=== PATIENT | male | born 1970 | race Caucasian/White ===

== ENCOUNTER 2021-08-08 08:29 | Emergency (ER) | payer OTHER ==
[2021-08-08 08:53] VITALS: BP 153/80; PULSE 93; TEMP 97.7; BMI 54.7
[2021-08-08] MEDS ORDERED: KETOROLAC TROMETHAMINE 60 MG/2 ML VIAL IM ONE (09:24)
[2021-08-08] MEDS ORDERED: KETOROLAC TROMETHAMINE 60 MG/2 ML VIAL ONE (10:39)
== END 2021-08-08 11:42 | disposition home or self-care (01) ==
LOC: JERFT 08:29 → JER 08:29 → JERFT 11:42
PROC: 3E0233Z Introduction of Anti-inflammatory into Muscle, Percutaneous Approach (ICD-10-PCS; principal; 2021-08-08)
DX: M25.511 Pain in right shoulder (principal)
CPT/HCPCS: 73030-TC-RT-FY; 99284-25

== ENCOUNTER 2021-09-04 10:45 | Emergency (ER) | payer OTHER ==
[2021-09-04 11:11] VITALS: BP 141/84; PULSE 95; TEMP 97.5; BMI 54.7
[2021-09-04] MEDS ORDERED: LIDOCAINE 5% TOPICAL PATCH TP ONE (11:32)
[2021-09-04] MEDS ORDERED: diazePAM 2 MG TABLET PO ONE (11:32)
[2021-09-04] MEDS ORDERED: KETOROLAC TROMETHAMINE 30 MG/1 ML VIAL IM ONE (11:32)
[2021-09-04] MEDS ORDERED: LIDOCAINE 5% TOPICAL PATCH ONE (11:42)
[2021-09-04] MEDS ORDERED: KETOROLAC TROMETHAMINE 30 MG/1 ML VIAL ONE (11:43)
[2021-09-04] MEDS ORDERED: diazePAM 2 MG TABLET ONE (11:43)
[2021-09-04] MEDS ORDERED: LIDOCAINE PATCH REMOVAL MC SCH (22:00)
== END 2021-09-04 11:49 | disposition home or self-care (01) ==
LOC: JERFT 10:45
PROC: 3E023GC Introduction of Other Therapeutic Substance into Muscle, Percutaneous Approach (ICD-10-PCS; principal; 2021-09-04)
DX: M25.511 Pain in right shoulder (principal)
CPT/HCPCS: 99284-25

== ENCOUNTER 2024-10-20 12:51 | Emergency (ER) | payer OTHER ==
[2024-10-20 13:12] VITALS: BP 150/58; PULSE 85; RESP 18; TEMP 97.9; BMI 48.8
[2024-10-20] MEDS ORDERED: ACETAMINOPHEN 325 MG TABLET (FP) ONE ×2 (13:40→15:46)
[2024-10-20] MEDS ORDERED: LIDOCAINE 5% TOPICAL PATCH ONE (13:40)
[2024-10-20] MEDS ORDERED: LIDOCAINE 4% PATCH TP ONE (15:47)
[2024-10-20] MEDS ORDERED: KETOROLAC TROMETHAMINE 30 MG/1 ML VIAL ONE (15:47)
[2024-10-20] MEDS: KETOROLAC TROMETHAMINE 30 MG/1 ML VIAL IM ONE (15:55)
[2024-10-20] MEDS: ACETAMINOPHEN 325 MG TABLET (FP) PO ONE (15:55)
[2024-10-20] MEDS: LIDOCAINE 5% TOPICAL PATCH TP ONE (15:55)
[2024-10-20] MEDS ORDERED: LIDOCAINE PATCH REMOVAL MC ONE (22:00)
== END 2024-10-20 16:41 | disposition home or self-care (01) ==
LOC: JER 12:51
PROC: 3E0233Z Introduction of Anti-inflammatory into Muscle, Percutaneous Approach (ICD-10-PCS; principal; 2024-10-20)
DX: S80.811A Abrasion, right lower leg, initial encounter (principal); M25.562 Pain in left knee; W01.198A Fall on same level from slipping, tripping and stumbling with subsequent striking against other object, initial encounter; Y92.512 Supermarket, store or market as the place of occurrence of the external cause
CPT/HCPCS: 73562-TC-LT-FY; 73590-TC-RT-FY; 99284-25